=== PATIENT | male | born 1980 | race Caucasian/White ===

== ENCOUNTER 2018-11-16 15:51 | Inpatient (IN) | payer OTHER ==
[2018-11-16 18:13] VITALS: BMI 19.0
--- NOTE | 2018-11-16 19:16 | HP ---
COWS - Scale Resting Pulse: 0= [place] 80 or Below Sweatin= Chills/Flushing Restless Observation: 1= Difficult to Sit Still Pupil Size: 1= Pupils >than Normal Bone or Joint Aches: 2= Severe Diffuse Aches Runny Nose/ Eye Tearin= Runny Nose/Eyes GI Upset > 30mins: 1= Stomach Cramp Tremor Observation: 1= Tremor [place], Not Seen Yawning Observation: 2= >3x During Session Anxiety or Irritability: 2=Irritable/Anxious Goose Flesh Skin: 3=Piloerection COWS Score: 16 CIWA Score - Admission Criteria [facility]ASAS Guidelines: Admission for Medically Managed Detox: Requires at least one of the followin. CIWA greater than 12 2. Seizures within the past 24 hours 3. Delirium tremens within the past 24 hours 4. Hallucinations within the past 24 hours 5. Acute intervention needed for co occurring medical disorder 6. Acute intervention needed for co occurring psychiatric disorder 7. Severe withdrawal that cannot be handled at a lower level of care (continued vomiting, continued diarrhea, abnormal vital signs) requiring intravenous medication and/or fluids 8. Admission ROS [facility] - [facility] Chief Complaint: WITHDRAWAL SYMPTOMS Allergies/Adverse Reactions: Allergies Allergy/AdvReac Type Severity Reaction Status Date / Time No Known Allergies Allergy Verified 11/16/18 18:05 History of Present Illness: 38 Y.O. MAN WITH AN EXTENSIVE HISTORY OF OPIATE DEPENDENCE IS HERE SEEKING HIS FIRST ADMISSION TO DETOX. Exam Limitations: No Limitations - Ebola screening Have you traveled outside of the country in the last 21 days: No Have you had contact with anyone from an Ebola affected area: No Do you have a fever: No - Review of Systems Constitutional: Chills, Diaphoresis, Loss of Appetite, Unintentional Wgt. Loss EENT: reports: Tearing, Nose Congestion Respiratory: reports: Cough Cardiac: reports: No Symptoms Reported GI: reports: No Symptoms Reported : reports: No Symptoms Reported Musculoskeletal: reports: Back Pain, Joint Pain, Neck Pain Integumentary: reports: Bruising Neuro: reports: Numbness, Tingling Endocrine: reports: No Symptoms Reported Hematology: reports: No Symptoms Reported Psychiatric: reports: Judgement Intact, Mood/Affect Appropiate, Anxious Other Systems: Reviewed and Negative Patient History - Patient Medical History Hx Anemia: No Hx Asthma: No Hx Chronic Obstructive Pulmonary Disease (COPD): No Hx Cancer: No Hx Cardiac Disorders: No Hx Congestive Heart Failure: No Hx Hypertension: No Hx Hypercholesterolemia: No Hx Pacemaker: No HX Cerebrovascular Accident: No Hx Seizures: No Hx Dementia: No Hx Diabetes: No Hx Gastrointestinal Disorders: No Hx Liver Disease: No Hx Genitourinary Disorders: No Hx Sexually Transmitted Disorders: No Hx Renal Disease (ESRD): No Hx Thyroid Disease: No Hx Human Immunodeficiency Virus (HIV): No Hx Hepatitis C: No Hx Depression: No Hx Suicide Attempt: No Hx Bipolar Disorder: No Hx Schizophrenia: No - Patient Surgical History Past Surgical History: Yes Hx Cholecystectomy: Yes (6 Y.O. ) Anesthesia Reaction: No - PPD History Previous Implant?: Yes Documented Results: Negative w/o proof PPD to be Administered?: Yes - Reproductive History Patient is a Female of Child Bearing Age (11 -55 yrs old): No - Smoking Cessation Smoking history: Current every day smoker Have you smoked in the past 12 months: Yes Initiated information on smoking cessation: Yes 'Breaking Loose' booklet given: 11/16/18 - Substance & Tx. History Hx Alcohol Use: No Hx Substance Use: Yes Substance Use Type: Heroin, Marijuana Hx Substance Use Treatment: No - Substances abused Heroin Substance route: Injection Frequency: Daily Amount used: 25-30 BAGS Age of first use: 29 Date of last use: 11/16/18 Marijuana/Hashish Substance route: Smoking Frequency: Daily Amount used: 1 JOINT Age of first use: 12 Date of last use: 11/16/18 Family Disease History - Family Disease History Family Disease History: Diabetes: Father (Cocaine dependence), Heart Disease: Father, CA: Mother (Uterine ca ), Other: Father Admission Physical Exam [facility] - Vital Signs Vital Signs: Vital Signs - 24 hr 11/16/18 18:04 Temperature 98.9 F Pulse Rate 74 Respiratory 18 Rate Blood Pressure 102/70 - Physical General Appearance: Yes: Anxious HEENTM: Yes: Normocephalic, Normal Voice Respiratory: Yes: Chest Non-Tender, Lungs Clear, Normal Breath Sounds, No Respiratory Distress, No Accessory Muscle Use Neck: Yes: No masses,lesions,Nodules Breast: Yes: Breast Exam Deferred Cardiology: Yes: Regular Rhythm, Regular Rate Abdominal: Yes: Normal Bowel Sounds, Non Tender, Flat, Soft Genitourinary: Yes: Hesitency Back: Yes: Other (No complaints reported) Musculoskeletal: Yes: full range of Motion, Gait Steady, Pelvis Stable, Back pain Extremities: Yes: Normal Inspection, Normal Range of Motion, Non-Tender Neurological: Yes: Alert, Normal Mood/Affect, Normal Response Integumentary: Yes: Normal Color, Dry, Warm - Diagnostic (1) Uncomplicated opioid dependence Current Visit: Yes Status: Chronic (2) Marijuana dependence Current Visit: Yes Status: Chronic (3) Nicotine dependence Current Visit: Yes Status: Chronic Cleared for Admission [facility] - Detox or Rehab [facility] Level of Care: Medically Managed Detox Regimen/Protocol: Methadone Claeared for Rehab Admission: No Breathalyzer - Breathalyzer Breathalyzer: 0 Urine Drug Screen - Test Device Lot number: [id number] Expiration date: 08/06/20 - Control Is test valid?: Yes - Results Drug screen NEGATIVE: No Urine drug screen results: THC-Marijuana, MOP-Opiates, OXY-Oxycodone Inpatient Rehab Admission - Rehab Decision to Admit Inpatient rehab admission?: No
[2018-11-16] MEDS ORDERED: MAGNESIUM CITRATE 300 ML BOTTLE PO PRN (19:17)
[2018-11-16] MEDS ORDERED: MAGNESIUM HYDROX 2400MG/30ML ORAL SUSPENSION 30 ML CUP PO PRN (19:17)
[2018-11-16] MEDS ORDERED: IBUPROFEN 400 MG TABLET (FP) PO PRN (19:17)
[2018-11-16] MEDS ORDERED: MAG HYDROX/AL HYDROX/SIMETH 30 ML UNIT-DOSE CUP PO PRN (19:17)
[2018-11-16] MEDS ORDERED: MENTHOL/PHENOL 1 EACH UD MM PRN (19:17)
[2018-11-16] MEDS ORDERED: PROCHLORPERAZINE MALEATE 5 MG TABLET PO PRN (19:17)
[2018-11-16] MEDS ORDERED: METHADONE HCL 10 MG TABLET (FOR DETOX USE ONLY) PO ONE ×2 (19:17→23:00)
[2018-11-16] MEDS ORDERED: BISMUTH SUBSALICYLATE 524 MG/30 ML UD PO PRN (19:17)
[2018-11-16] MEDS ORDERED: ONDANSETRON *ODT* 4 MG TABLET SL PRN (19:17)
[2018-11-16] MEDS ORDERED: NALOXONE HCL 0.4 MG/ML VIAL IVPUSH PRN (19:17)
[2018-11-16] MEDS ORDERED: ACETAMINOPHEN 325 MG TABLET (FP) PO PRN ×2 (19:17)
[2018-11-16] MEDS: THIAMINE HCL 100 MG TABLET (FP) PO SCH (23:24)
[2018-11-17] MEDS: clonazePAM 0.5 MG TABLET PO PRN ×3 (07:27→23:54)
[2018-11-17] MEDS: METHOCARBAMOL 500 MG TABLET PO PRN ×2 (07:27→23:54)
[2018-11-17] MEDS ORDERED: METHADONE HCL 10 MG TABLET (FOR DETOX USE ONLY) PO ONE (10:00)
[2018-11-17] MEDS: PRENATAL VITAMINS W/ FOLIC ACID TABLET (FP) PO SCH (10:13)
--- NOTE | 2018-11-17 11:05 | PN ---
BHS COWS - Scale Resting Pulse: 0= [place] 80 or Below Sweatin=Flushed/Facial Moisture Restless Observation: 1= Difficult to Sit Still Pupil Size: 0= Normal to Room Light Bone or Joint Aches: 2= Severe Diffuse Aches Runny Nose/ Eye Tearin= Nasal Congestion GI Upset > 30mins: 2= Nausea/Diarrhea Tremor Observation of Outstretched Hands: 2= Slight Tremor Visible Yawning Observation: 2= >3x During Session Anxiety or Irritability: 2=Irritable/Anxious Goose Flesh Skin: 3=Piloerection COWS Score: 17 BHS Progress Note (SOAP) Subjective: body aches sweats shakes interrupted sleep agitation irritable Objective: 11/17/18 11:08 Vital Signs Temperature 97.0 F L 11/17/18 09:38 Pulse Rate 70 11/17/18 09:38 Respiratory Rate 18 11/17/18 09:38 Blood Pressure 100/56 L 11/17/18 09:38 O2 Sat by Pulse Oximetry (%) labs reordered aaox3 ambulating no acute distress Assessment: 11/17/18 11:11 withdrawal sx Plan: continue detox increase fluids labs pending
--- NOTE | 2018-11-17 12:14 | EKG ---
Test Reason : Blood Pressure : / mmHG Vent. Rate : 059 BPM Atrial Rate : 059 BPM P-R Int : 138 ms QRS Dur : 094 ms QT Int : 422 ms P-R-T Axes : 014 060 061 degrees QTc Int : 417 ms SINUS BRADYCARDIA WITH SINUS ARRHYTHMIA INCOMPLETE RIGHT BUNDLE BRANCH BLOCK BORDERLINE ECG NO PREVIOUS ECGS AVAILABLE Confirmed by MD Arias, Jon ([id number]) on 11/17/2018 12:14:09 PM Referred By: Confirmed By:Jon Bianchi MD
[2018-11-17] MEDS: hydrOXYzine PAMOATE 25 MG CAPSULE (FP) PO PRN ×2 (17:30→23:54)
[2018-11-17] MEDS: THIAMINE HCL 100 MG TABLET (FP) PO SCH (22:14)
[2018-11-17] MEDS: MELATONIN 5 MG TABLETS PO PRN (22:15)
[2018-11-18] MEDS: cloNIDine HCL 0.1 MG TABLET PO PRN ×2 (08:21→22:20)
[2018-11-18] MEDS: clonazePAM 0.5 MG TABLET PO PRN ×2 (08:21→19:19)
[2018-11-18] MEDS: METHOCARBAMOL 500 MG TABLET PO PRN (08:21)
[2018-11-18 09:58] LABS: EOS % 0.8 % (0-4.5); HEMATOCRIT 41.9 % (35.4-49); HEMOGLOBIN 14.1 GM/dL (11.7-16.9); LYMPH % 22.2 % (8-40); MCH 30.5 pg (25.7-33.7); MCHC 33.8 g/dl (32.0-35.9); MEAN CELL VOLUME 90.5 fl (80-96); MEAN PLT VOLUME 10.9 fl (7.5-11.1); MONO % 6.2 % (3.8-10.2); NEUT % 69.8 % (42.8-82.8); PLATELET COUNT 288 K/MM3 (134-434); RBC 4.63 M/mm3 (4.00-5.60); WHITE BLOOD COUNT 12.2 K/mm3 (4.0-10.0)
[2018-11-18] MEDS ORDERED: METHADONE HCL 10 MG TABLET (FOR DETOX USE ONLY) PO ONE (10:00)
[2018-11-18 10:02] LABS: ALBUMIN 4.2 g/dl (3.4-5.0); BILIRUBIN,TOTAL 1.3 mg/dL (0.2-1); CALCIUM 9.6 mg/dL (8.5-10.1); CREATININE 0.7 mg/dL (0.55-1.3); POTASSIUM 3.9 mmol/L (3.5-5.1)
--- NOTE | 2018-11-18 10:49 | PN ---
BHS COWS - Scale Resting Pulse: 0= [place] 80 or Below Sweatin=Flushed/Facial Moisture Restless Observation: 1= Difficult to Sit Still Pupil Size: 0= Normal to Room Light Bone or Joint Aches: 2= Severe Diffuse Aches Runny Nose/ Eye Tearin= Nasal Congestion GI Upset > 30mins: 1= Stomach Cramp Tremor Observation of Outstretched Hands: 2= Slight Tremor Visible Yawning Observation: 2= >3x During Session Anxiety or Irritability: 2=Irritable/Anxious Goose Flesh Skin: 3=Piloerection COWS Score: 16 BHS Progress Note (SOAP) Subjective: chills sweats body aches shakes interrupted sleep Objective: 11/18/18 10:48 Vital Signs Temperature 97.9 F 11/18/18 09:24 Pulse Rate 50 L 11/18/18 09:24 Respiratory Rate 18 11/18/18 09:24 Blood Pressure 118/72 11/18/18 09:24 O2 Sat by Pulse Oximetry (%) Laboratory Tests 11/18/18 11/18/18 07:00 07:00 WBC 12.2 H RBC 4.63 Hgb 14.1 Hct 41.9 MCV 90.5 MCH 30.5 MCHC 33.8 RDW 13.0 Plt Count 288 MPV 10.9 Absolute Neuts (auto) 8.5 H Neutrophils % 69.8 Lymphocytes % 22.2 Monocytes % 6.2 Eosinophils % 0.8 Basophils % 1.0 Nucleated RBC % 0 Sodium 138 Potassium 3.9 Chloride 106 Carbon Dioxide 25 Anion Gap 7 L BUN 14 Creatinine 0.7 Est GFR (CKD-EPI)AfAm 137.78 Est GFR (CKD-EPI)NonAf 118.88 Random Glucose 88 Calcium 9.6 Total Bilirubin 1.3 H AST 33 ALT 92 H Alkaline Phosphatase 154 H Total Protein 8.0 Albumin 4.2 aaox3 ambulating no acute distress Assessment: 11/18/18 10:48 withdrawal sx Plan: continue detox increase fluids
[2018-11-18] MEDS: NICOTINE POLACRILEX 2 MG GUM BUC PRN (12:48)
[2018-11-18] MEDS: PRENATAL VITAMINS W/ FOLIC ACID TABLET (FP) PO SCH (13:19)
[2018-11-18] MEDS: MELATONIN 5 MG TABLETS PO PRN (22:20)
[2018-11-18] MEDS: THIAMINE HCL 100 MG TABLET (FP) PO SCH (22:20)
[2018-11-19] MEDS: METHOCARBAMOL 500 MG TABLET PO PRN ×2 (04:22→21:48)
[2018-11-19] MEDS: clonazePAM 0.5 MG TABLET PO PRN ×2 (06:37→17:31)
--- NOTE | 2018-11-19 09:44 | PN ---
BHS Progress Note (SOAP) Subjective: feeling a bit better sweats anxiety Objective: 11/19/18 09:40 Vital Signs Temperature 98.6 F 11/19/18 06:59 Pulse Rate 66 11/19/18 06:59 Respiratory Rate 18 11/19/18 06:59 Blood Pressure 103/70 11/19/18 06:59 O2 Sat by Pulse Oximetry (%) aaox3 ambulating no acute distress Assessment: 11/19/18 09:43 mild withdrawal sx Plan: continue detox increase fluids d/c in am at 7am as per pt request
[2018-11-19] MEDS: PRENATAL VITAMINS W/ FOLIC ACID TABLET (FP) PO SCH (09:48)
[2018-11-19] MEDS: hydrOXYzine PAMOATE 25 MG CAPSULE (FP) PO PRN ×2 (09:48→21:48)
[2018-11-19] MEDS ORDERED: METHADONE HCL 10 MG TABLET (FOR DETOX USE ONLY) PO ONE (10:00)
[2018-11-19] MEDS: NICOTINE POLACRILEX 2 MG GUM BUC PRN (11:43)
[2018-11-19] MEDS: MELATONIN 5 MG TABLETS PO PRN (21:48)
[2018-11-19] MEDS: THIAMINE HCL 100 MG TABLET (FP) PO SCH (21:50)
[2018-11-19 21:53] VITALS: BP 100/68; PULSE 77; TEMP 99.1
[2018-11-20] MEDS: NICOTINE POLACRILEX 2 MG GUM BUC PRN (01:09)
[2018-11-20] MEDS ORDERED: METHADONE HCL 5 MG TABLET (FOR DETOX USE ONLY) PO ONE (06:00)
== END 2018-11-20 03:15 | disposition home or self-care (01) | DRG 773 ==
LOC: YASAS 15:51 → Y6N 19:36
PROVIDERS: ADMIT Surgery; ATTEND Surgery
PROC: HZ2ZZZZ Detoxification Services for Substance Abuse Treatment (ICD-10-PCS; principal; 2018-11-16)
DX: F11.23 Opioid dependence with withdrawal (principal); F12.20 Cannabis dependence, uncomplicated; F17.210 Nicotine dependence, cigarettes, uncomplicated
CPT/HCPCS: 36415; 80053; 85025; 86593; 93005; 93010; J0735; Q0162